=== PATIENT | male | born 2000 | race Two or more races ===

== ENCOUNTER 2024-04-02 17:34 | Emergency (ER) | payer OTHER ==
[2024-04-02 17:45] VITALS: BP 121/85; PULSE 70; RESP 20; TEMP 98; BMI 32.5
[2024-04-02] MEDS ORDERED: ACETAMINOPHEN 500 MG TABLET (FP) ONE (19:15)
[2024-04-02] MEDS ORDERED: KETOROLAC TROMETHAMINE 30 MG/1 ML VIAL ONE (19:15)
[2024-04-02] MEDS ORDERED: LIDOCAINE 4% PATCH TP ONE (19:16)
[2024-04-02] MEDS: LIDOCAINE 4% PATCH TP ONE (19:29)
[2024-04-02] MEDS: KETOROLAC TROMETHAMINE 30 MG/1 ML VIAL IM ONE (19:29)
[2024-04-02] MEDS: ACETAMINOPHEN 500 MG TABLET (FP) PO ONE (19:30)
[2024-04-03] MEDS ORDERED: LIDOCAINE PATCH REMOVAL MC SCH (07:00)
== END 2024-04-02 19:30 | disposition home or self-care (01) ==
LOC: JERFT 17:34
PROC: 3E0233Z Introduction of Anti-inflammatory into Muscle, Percutaneous Approach (ICD-10-PCS; principal; 2024-04-02)
DX: M54.50 Low back pain, unspecified (principal); V49.40XA Driver injured in collision with unspecified motor vehicles in traffic accident, initial encounter; Y92.410 Unspecified street and highway as the place of occurrence of the external cause
CPT/HCPCS: 99284-25